=== PATIENT | male | born 1980 | race African-American/Black ===

== ENCOUNTER 2021-08-14 18:45 | Emergency (ER) | payer SELFPAY ==
[~2021-08-14] VITALS: Ht 167.6 cm; Wt 77.7 kg
[2021-08-14 19:15] VITALS: BP 164/98
[2021-08-14] MEDS ORDERED: LIDOCAINE 1%/EPI 1:100,000 20 ML VIAL. INJ ONE (19:45)
[2021-08-14] MEDS ORDERED: TRANEXAMIC ACID 1,000 MG/10 ML VIAL. TOP ONE (19:45)
[2021-08-14] MEDS ORDERED: DIPH,PERTUSS(ACELL),TET VAC/PF 0.5 ML SYRINGE. VAX IM ONE (21:00)
--- NOTE | 2021-08-14 21:01 | PHYS DOC ---
Past Medical History Additional Past Medical Histor: GOUT Past Surgical History: Other Additional Past Surgical Histo: RIGHT KNEE, LEFT ANKLE Smoking Status: Current Every Day Smoker Alcohol Use: Heavy General Adult EDM: Chief Complaint: LACERATION/AVULSION HPI: HPI: Patient is a 41 year old man with history of uncontrolled hypertension, gout, arthritis, alcoholism, who presents to the ED today to be evaluated for right forearm laceration. Patient states he was hanging a [place] tree and his right hand went through a window. He is intoxicated. Patient denies hitting his head on the ground. Denies any neck pain or head pain. Review of Systems: Review of Systems: Constitutional: Denies fever or chills. [] Musculoskeletal: Denies back pain or joint pain. [] Integument: Reports right forearm laceration Neurologic: Denies headache, focal weakness or sensory changes. [] Psychiatric: Denies depression or anxiety. [] Heart Score: C/O Chest Pain: N/A Risk Factors: Risk Factors: DM, Current or recent (<one month) smoker, HTN, HLP, family history of CAD, obesity. Risk Scores: Score 0 - 3: 2.5% MACE over next 6 weeks - Discharge Home Score 4 - 6: 20.3% MACE over next 6 weeks - Admit for Clinical Observation Score 7 - 10: 72.7% MACE over next 6 weeks - Early Invasive Strategies Current Medications: Current Medications Medications (Trade) Dose Ordered Sig/Steve Start Time Stop Time Status Last Admin Dose Admin Diphtheria/ Tetanus/Acell Pertussis (ADACEL TDap SYRINGE) 0.5 ml ONCE ONCE 08/14/21 21:00 08/14/21 21:01 Lidocaine/ Epinephrine (LIDOCAINE 1%-EPI 1:100,000 Multi-Dose) 40 ml 1X ONCE 08/14/21 19:45 08/14/21 19:46 DC 08/14/21 19:45 40 ML Tranexamic Acid (Cyklokapron) 1,000 mg 1X ONCE 08/14/21 19:45 08/14/21 19:46 DC 08/14/21 19:45 1,000 MG Allergies: Allergies: Allergies Coded Allergies Type Severity Reaction Last Updated Verified aspirin Allergy Intermediate 08/14/21 Yes banana Allergy Intermediate 08/14/21 Yes Physical Exam: PE: Constitutional: Well developed, well nourished, no acute distress, non-toxic appearance. [] Skin: Ulnar aspect of the right forearm with 2 lacerations each approximately 5 cm long. There is no obvious tendon involvement. There is blood squirting from one of the laceration sites. Pressure was applied to the area by the RN. A dequate radial, medial, ulnar sensation to the right fingers. +2 right radial pulse. Cap refill less than 2 seconds the right fingers Back: No tenderness, no CVA tenderness. [] Extremities: No tenderness, no cyanosis, no clubbing, ROM intact, no edema. [] Neurologic: Alert and oriented X 3, normal motor function, normal sensory function, no focal deficits noted. [] Psychologic: Intoxicated, mood swings from happy to anger Current Patient Data: Vital Signs: Vital Signs Date Time Temp Pulse Resp B/P (MAP) Pulse Ox O2 Delivery O2 Flow Rate FiO2 08/14/21 19:15 98.6 100 16 164/98 (120) 95 Room Air 98.6 EKG: EKG: [] Radiology/Procedures: Radiology/Procedures: Laceration/Wound Repair Wound Location: Right forearm Wound's Depth, Shape: Horizontal Wound Length (cm): Proximately 5 cm each Wound Explored: clean Irrigated w/ Saline (ccs): 1000 Betadine Prep?: Yes Anesthesia: 1% of lidocaine with epinephrine, approximately 15 cc for both lacerations Patient was still bleeding. TXA was used and that stopped the bleeding Wound Repaired With: Ethilon Suture Size/Type: 3.0/interrupted sutures Number of Sutures: 1 laceration was closed with 10 interrupted sutures, the other laceration was closed with 9 interrupted sutures Progress : Wound was covered with nonstick dressing Course & Med Decision Making: Course & Med Decision Making Pertinent Labs and Imaging studies reviewed. (See chart for details) This a 41-year-old male patient presented to the ED today with right forearm laceration that was closed by me as noted in procedures. Tetanus was updated. Wound care instructions and return precautions provided to patient. His blood pressure was in the 160s over 90s, he has a history of uncontrolled hypertension. Recommended establishing care with a PCP for follow-up. Recommended getting help for alcohol abuse which patient denied having a alcohol problem. Dragon Disclaimer: Draglevi Disclaimer: This electronic medical record was generated, in whole or in part, using a voice recognition dictation system. Departure Departure Impression: Primary Impression: Laceration of right forearm Qualified Codes: S51.811A - Laceration without foreign body of right forearm, initial encounter Additional Impressions: Hypertension Qualified Codes: I10 - Essential (primary) hypertension Alcohol intoxication Qualified Codes: F10.920 - Alcohol use, unspecified with intoxication, uncomplicated Disposition: HOME / SELF CARE / HOMELESS Condition: STABLE Referrals: NO PCP (PCP) Follow-up with your primary care doctor or the emergency room in 7 days for stitches to be removed Patient Instructions: Laceration Care, Adult Additional Instructions: You have a right forearm laceration that was closed with stitches. You can remove the dressing in 24 hours. Keep the area clean and dry. Apply Neosporin to the area once or twice a day. You can shower and wash the area once a day. Please monitor the area for any signs of infection including increased redness, warmth, yellow drainage from laceration. ROB BAHENA APRN Aug 14, 2021 21:01
== END 2021-08-14 21:15 | disposition home or self-care (01) ==
LOC: ER 18:45
DX: S51.811A Laceration without foreign body of right forearm, initial encounter (principal); I10 Essential (primary) hypertension; M10.9 Gout, unspecified; F17.200 Nicotine dependence, unspecified, uncomplicated; F10.20 Alcohol dependence, uncomplicated; Y90.9 Presence of alcohol in blood, level not specified; Z88.6 Allergy status to analgesic agent; Z91.018 Allergy to other foods; Y28.8XXA Contact with other sharp object, undetermined intent, initial encounter; Y93.89 Activity, other specified; Y92.89 Other specified places as the place of occurrence of the external cause; Y99.8 Other external cause status
CPT/HCPCS: 12002; 90471; 90715; 99283; J3490

== ENCOUNTER 2021-08-26 05:51 | Emergency (ER) | payer SELFPAY ==
[~2021-08-26] VITALS: Ht 167.6 cm; Wt 77.7 kg
[2021-08-26 05:56] VITALS: BP 155/93
[2021-08-26] MEDS ORDERED: NEOM28.33 TP (06:18)
--- NOTE | 2021-08-26 06:18 | PHYS DOC ---
Past Medical History Additional Past Medical Histor: GOUT Past Surgical History: Other Additional Past Surgical Histo: RIGHT KNEE, LEFT ANKLE Smoking Status: Current Every Day Smoker Alcohol Use: Heavy General Adult EDM: Chief Complaint: SUTURE/STAPLE REMOVAL HPI: HPI: 41-year-old male past medical history significant for uncontrolled hypertension, gout, arthritis and alcoholism presents the ED with his , (patient consents to his/her/their knowledge and involvement in pts' medical care), requesting suture removal after lacerations to his right forearm sustained after patient was pulling up a [place] tree. Patient states his hand was flexed and pushed the request window causing laceration. Has been applying hydrogen peroxide, alcohol and triple antibiotic to the wound. Does report daily alcohol use. Tet anus was updated on August 14. Patient denies any associated rash, increased pain, weakness or loss of sensation of the right upper extremity. Reports he has 18 sutures. Review of Systems: Review of Systems: Constitutional: Denies fever or chills. [] Eyes: Denies change in visual acuity. [] HENT: Denies nasal congestion or sore throat. [] Respiratory: Denies cough or shortness of breath. [] Cardiovascular: Denies chest pain or edema. [] GI: Denies nausea or vomiting Musculoskeletal: Denies back pain or joint pain. [] Integument: Denies rash or desquamation Neurologic: Denies focal weakness or sensory changes. [] Psychiatric: Denies depression or anxiety. [] Heart Score: C/O Chest Pain: No Risk Factors: Risk Factors: DM, Current or recent (<one month) smoker, HTN, HLP, family history of CAD, obesity. Risk Scores: Score 0 - 3: 2.5% MACE over next 6 weeks - Discharge Home Score 4 - 6: 20.3% MACE over next 6 weeks - Admit for Clinical Observation Score 7 - 10: 72.7% MACE over next 6 weeks - Early Invasive Strategies Allergies: Allergies: Allergies Coded Allergies Type Severity Reaction Last Updated Verified aspirin Allergy Intermediate 08/14/21 Yes banana Allergy Intermediate 08/14/21 Yes Physical Exam: PE: Constitutional: Well developed, well nourished, no acute distress, non-toxic appearance. HENT: Normocephalic, atraumatic, Eyes: EOMI, conjunctiva normal, no discharge. Neck: Normal range of motion, supple, Cardiovascular: S1/2 present, regular rhythm Lungs & Thorax: Speaking in full sentences, bilateral equal chest rise, no tachypnea or increased work of breathing Skin: Warm, dry, no erythema, no rash, very dry wound margins with skin and very minimal wound dehiscence-no active bleeding, Extremities: no cyanosis, no lower extremity edema, reports pain to lac site although keeps both hands on the back of the head and allows me to remove as such, median/radial/ulnar nerve sensation intact Neurologic: Alert and oriented X 3, normal motor function, normal sensory function, no focal deficits noted. [] Psychologic: Affect normal, judgement normal, mood normal. [] Current Patient Data: Vital Signs: Vital Signs Date Time Temp Pulse Resp B/P (MAP) Pulse Ox O2 Delivery O2 Flow Rate FiO2 08/26/21 05:56 98.7 116 20 155/93 (113) 98 Room Air 98.7 EKG: EKG: [] Course & Med Decision Making: Course & Med Decision Making Pertinent Labs and Imaging studies reviewed. (See chart for details) Encounter for suture removal and dry appearing wound s/p 12 days of placement. 10 sutures removed from proximal laceration site and 8 sutures removed from distal laceration site. There is very minimal wound dehiscence with no active bleeding. Will demonstrations given to patient by myself to gently clean with Dial antibacterial soap. Recommend triple antibiotic ointment for the next 2 days. Will discharge home with strict ED return precautions were given for rash, desquamation, bleeding or repeat injury. Encouraged urgent outpatient follow-up with PMD for routine care. Life-threatening processes were considered but are low suspicion at this time, given history, physical exam and ED workup. Pt was educated on all prescription medications and adverse effects. All patient's questions were answered and pt was stable at time of discharge. Life/limb-threatening differential includes but is not limited to, infection or rash (including osteomyelitis, necrotizing fasciitis, cellulitis), wound dehiscence, tendon injury, traumatic injury etc I have spoken with the patient and/or caregivers. I explained the patient's condition, diagnoses and treatment plan based on the information available to me at this time. I have answered the patient and/or caregiver's questions and addressed any concerns. The patient and/or caregivers have a good understanding of patient's diagnosis, condition and treatment plan as can be expected at this point. Vital signs have been stable. Patient's condition is stable and appropriate for discharge from the emergency department. Patient will pursue further outpatient evaluation with primary care physician or other designated or consulting physician as outlined in the discharge instructions. The patient and/or caregivers are agreeable to this plan of care and follow-up instructions have been explained in detail. The patient and/or caregivers have received these instructions in written form and have expressed an understanding of the discharge instructions. The patient and/or caregivers are aware that any significant change of condition or worsening of symptoms should prompt immediate return to this or the closest emergency department or call to 911. Faby Disclaimer: [employer]OPE Disclaimer: This electronic medical record was generated, in whole or in part, using a voice recognition dictation system. Departure Departure Impression: Primary Impression: Encounter for removal of sutures Disposition: HOME / SELF CARE / HOMELESS Condition: STABLE Referrals: NO PCP (PCP) Follow-up with your primary care physician in 24 to 48 hours OR FOLLOW UP WITH FAMILY MEDICINE: [address] [facility], [facility] [address] [place] [address] Patient Instructions: Suture Removal, Sutured Wound Care Additional Instructions: EMERGENCY DEPARTMENT GENERAL DISCHARGE INSTRUCTIONS Thank you for coming to [facility] Emergency Department (ED) today and trusting us with you care. We trust that you had a positive experience in our Emergency Department. If you wish to speak to the department management, you may call the Director at [phone]. YOUR FOLLOW UP INSTRUCTIONS ARE FOLLOWS: 1. Do you have a private Doctor? If you do not have a private doctor, please ask for a resource list of physicians or clinics that may be able to assist you with follow up care. 2. The Emergency Physicain has interpreted your x-rays. The X-Ray specialist will also review them. If there is a change in the findings, you will be notified in 48 hours when at all possible. 3. A lab test or culture has been done, your results will be reviewed and you will be notified if you need a change in treatment. ADDITIONAL INSTRUCTIONS AND INFORMATION: 1. Your care today has been supervised by a physician who is specially trained in emergency care. Many problems require more than one evaluation for a complete diagnosis and treatment. We recommend that you schedule your follow up appointment as recommended to ensure complete treatment of you illness or injury. If you are unable to obtain follow up care and continue to have a problem, or if your condition worsens, we recommend that you return to the ED. 2. We are not able to safely determine your condition over the phone nor are we able to give sound medical advice over the phone. For these safety reasons, if you call for medical advice we will ask you to come to the ED for further evaluation. 3. If you have any questions regarding these discharge instructions please call the ED at [phone]. SAFETY INFORMATION: In the interest of safety, wellness, and injury prevention; we encourage you to wear your sealbelt, if you smoke; quite smoking, and we encourage family to use a protective helmet for bicycling and other sporting events that present an increased risk for head injury. IF YOUR SYMPTOMS WORSEN OR NEW SYMPTOMS DEVELOP, OR YOU HAVE CONCERNS ABOUT YOUR CONDITION; OR IF YOUR CONDITION WORSENS WHILE YOU ARE WAITING FOR YOUR FOLLOW UP APPOINTMENT; EITHER CONTACT YOUR PRIMARY CARE DOCTOR, THE PHYSICIAN WHOSE NAME AND NUMBER YOU WERE GIVEN, OR RETURN TO THE ED IMMEDIATELY. Scripts Neomycn/Baci Zn/Pmyx Bs/Pramox (NEOSPORIN + PAIN RELIEF OINT) 28.3 Gm Oint...g. 28.3 GM TP TID PRN for PAIN, #1 MISC Prov: PANCHO SANCHES DO 08/26/21 PANCHO SANCHES DO Aug 26, 2021 06:18
== END 2021-08-26 06:25 | disposition home or self-care (01) ==
LOC: ER 05:51
DX: S51.811D Laceration without foreign body of right forearm, subsequent encounter (principal); F17.200 Nicotine dependence, unspecified, uncomplicated; M10.9 Gout, unspecified; Z88.6 Allergy status to analgesic agent; Z91.018 Allergy to other foods; W26.8XXD Contact with other sharp object(s), not elsewhere classified, subsequent encounter
CPT/HCPCS: 99283